=== PATIENT | male | born 1985 ===

== ENCOUNTER 2022-11-06 18:58 | Emergency (ER) | payer SELFPAY ==
[~2022-11-06] VITALS: Ht 185.4 cm; Wt 79.5 kg
[2022-11-06 19:01] VITALS: BP 152/114
== END 2022-11-06 20:37 | disposition home or self-care (01) ==
LOC: ER 18:58
DX: K59.00 Constipation, unspecified (principal); F17.200 Nicotine dependence, unspecified, uncomplicated; Z56.0 Unemployment, unspecified; Z79.899 Other long term (current) drug therapy
CPT/HCPCS: 74018; 99283